=== PATIENT | male | born 1930 | race Caucasian/White ===

== ENCOUNTER 2017-04-21 15:18 | Inpatient (IN) | payer BC ==
[~2017-04-21] VITALS: Ht 172.7 cm; Wt 85.7 kg
[~2017-04-21 15:18] MED LIST: ALPR0.254 PO; ATOR20TA50 PO; CARV25TA55 PO; CLOP75TA28 PO; FLUT250M9 IN; FLUT50SP13; Furosemide PO; GLIP-115 PO; IPRASOL39 IN; LEVO50TA7 PO; LISI10TA6 PO; PROAIR IN
[2017-04-21] MEDS ORDERED: SODIUM CHLORIDE 0.9% 1,000 ML IV ONE (15:46)
[2017-04-21 17:08] LABS: Albumin 2.5 g/dL (3.4-5.0); BUN/Creatinine Ratio 14.2; Calcium 8.4 mg/dL (8.5-10.1); Magnesium 2.2 mg/dL (1.6-2.6); Potassium 4.4 mmol/L (3.5-5.1)
[2017-04-21 17:13] LABS: Basophils # (auto) 0 uL; Basophils % (auto) 0.4 % (0.0-2.0); CONDITION Y; Eosinophils # (auto) 0.1 uL; Hematocrit 42.4 % (41.0-53.0); Hemoglobin 14.4 g/dL (13.5-17.5); Lymphocytes # (auto) 0.8 uL; Lymphocytes % (auto) 18.8 % (10.0-50.0); Mean Corpuscular Hemoglobin 32.1 pg (28.0-32.0); Mean Corpuscular Hgb Conc. 33.9 g/dL (32.0-36.0); Mean Corpuscular Volume 94.7 fL (80.0-100.0); Mean Platelet Volume 10.4 fL (7.4-10.4); Monocytes # (auto) 0.4 uL; Monocytes % (auto) 8.9 % (0.0-12.0); Neutrophils # (auto) 3.1 uL; Neutrophils % (auto) 68.9 % (37.0-80.0); Platelet Count (auto) 71 10^3/uL (140-450); Red Cell Distribution Width 14.5 % (11.6-16.0); Total Protein 7.2 g/dL (6.4-8.2); White Blood Cell 4.5 10^3/uL (4.4-10.8)
[2017-04-21 17:15] LABS: INR 1.09 (0.9-1.15); Partial Thromboplastin Time 29.3 sec (22.64-33.71); Prothrombin Time 11.9 sec (9.37-12.3)
[2017-04-21] MEDS ORDERED: ALPRAZolam 0.25 MG TAB PO PRN ×3 (17:45→19:15)
[2017-04-21] MEDS ORDERED: HYDROcodone-ACET 5/325MG TAB PO PRN (18:00)
[2017-04-21] MEDS ORDERED: ACETAMINOPHEN 325 MG TAB PO PRN (18:00)
[2017-04-21] MEDS ORDERED: ENOXAPARIN SOD 40 MG/0.4 ML SYRINGE SC SCH (18:00)
[2017-04-21] MEDS ORDERED: NITROGLYCERIN 0.4 MG SL TAB SL PRN (18:00)
[2017-04-21] MEDS ORDERED: MORPHINE SULF INJ 2 MG/ML SYRINGE 1ML IV PRN ×2 (18:00)
[2017-04-21] MEDS ORDERED: TEMAZEPAM 15 MG CAP PO PRN (18:00)
[2017-04-21] MEDS ORDERED: DOCUSATE SOD 100 MG CAP PO PRN (18:00)
[2017-04-21] MEDS ORDERED: ONDANSETRON HCL 4 MG/2 ML VIAL IV PRN (18:00)
[2017-04-21] MEDS ORDERED: ASPirin-EC 81 mg tab PO ONE (18:00)
[2017-04-21] MEDS: Boost Glucose Control 8 Ounces PO SCH (18:00)
[2017-04-21] MEDS: ALBUTEROL SULF 2.5 MG/0.5ML(0.5%) NEB SOLN NEB SCH (18:23)
[2017-04-21] MEDS: IPRATROPIUM BROM 0.5 MG/2.5ML INH SOL NEB SCH (18:24)
[2017-04-21] MEDS: BUDESONIDE (INHALATION) 0.5 MG/2 ML NEB NEB SCH (18:25)
[2017-04-21] MEDS: glipiZIDE 5 MG TAB PO SCH (18:33)
[2017-04-21] MEDS ORDERED: ALPR0.254 PO (18:42)
[2017-04-21] MEDS ORDERED: FLUT250M2 INH (18:42)
[2017-04-21] MEDS ORDERED: ATOR40TA52 PO (18:44)
[2017-04-21] MEDS ORDERED: CLOP75TA41 PO (18:44)
[2017-04-21] MEDS ORDERED: FLUT0.0535 NAS (18:49)
[2017-04-21] MEDS ORDERED: FURO40TA4 PO (18:49)
[2017-04-21] MEDS ORDERED: GABA-497 PO (18:49)
[2017-04-21] MEDS ORDERED: DEXTROSE (50%) 50ML SYRG IV PRN (19:00)
[2017-04-21] MEDS ORDERED: PRO20T PO (19:12)
[2017-04-21] MEDS ORDERED: POTA10TA34 PO (19:12)
[2017-04-21] MEDS ORDERED: LEVO25TA6 PO (19:12)
[2017-04-21] MEDS ORDERED: LISI10TA6 PO (19:12)
[2017-04-21] MEDS ORDERED: FLUTICASONE PROP NASAL SPR 0.05 % (50MCG) 16GM PRN (19:15)
[2017-04-21] MEDS ORDERED: CLOPIDOGREL BISULFATE 75 MG TAB PO SCH (22:00)
[2017-04-21] MEDS: CARVEDILOL 12.5 MG TAB PO SCH (22:00)
[2017-04-21] MEDS: ACCU-CHEK COMFORT CURVE STRIP VI SCH (22:00)
[2017-04-21] MEDS: PROPRANOLOL HCL 20 MG TAB PO SCH (22:00)
[2017-04-21] MEDS ORDERED: InsuLIN REG 1unit/0.01ml Soln (100units/ml) SC SCH (22:00)
[2017-04-21] MEDS: GABAPENTIN 300 MG CAP PO SCH (22:00)
[2017-04-21] MEDS ORDERED: ATORVASTATIN 20 MG TAB PO SCH (22:00)
[2017-04-21] MEDS: FLUTICASONE PROP NASAL SPR 0.05 % (50MCG) 16GM EACHNOSTRI SCH (22:00)
[2017-04-21] MEDS: SODIUM CHLOR 0.9% PF (SALINE LOCK) 10ML VIAL IV SCH (22:00)
[2017-04-21 22:42] VITALS: BP 147/62
[2017-04-21 23:00] VITALS: BP 134/58
[2017-04-22] VITALS (8 sets, daily range): BP systolic 90–127; BP diastolic 50–68
[2017-04-22 05:19] LABS: Basophils # (auto) 0 uL; Basophils % (auto) 0.4 % (0.0-2.0); CONDITION Y; DEFINITIVE SEE PRINTOUT; Eosinophils # (auto) 0.1 uL; Eosinophils % (auto) 3.8 % (0.0-7.0); Hematocrit 38.1 % (41.0-53.0); Hemoglobin 12.9 g/dL (13.5-17.5); Lymphocytes # (auto) 0.7 uL; Mean Corpuscular Hemoglobin 31.9 pg (28.0-32.0); Mean Corpuscular Hgb Conc. 33.8 g/dL (32.0-36.0); Mean Corpuscular Volume 94.2 fL (80.0-100.0); Mean Platelet Volume 10.1 fL (7.4-10.4); Monocytes # (auto) 0.3 uL; Monocytes % (auto) 10.9 % (0.0-12.0); Neutrophils # (auto) 1.7 uL; Neutrophils % (auto) 59.9 % (37.0-80.0); Platelet Count (auto) 53 10^3/uL (140-450); Red Cell Distribution Width 14.5 % (11.6-16.0); White Blood Cell 2.8 10^3/uL (4.4-10.8)
[2017-04-22] MEDS: ALBUTEROL SULF 2.5 MG/0.5ML(0.5%) NEB SOLN NEB SCH ×4 (05:37→19:48)
[2017-04-22] MEDS: IPRATROPIUM BROM 0.5 MG/2.5ML INH SOL NEB SCH ×4 (05:37→19:48)
[2017-04-22] MEDS: BUDESONIDE (INHALATION) 0.5 MG/2 ML NEB NEB SCH ×2 (05:38→19:58)
[2017-04-22 05:48] LABS: Albumin 2.2 g/dL (3.4-5.0); Calcium 7.9 mg/dL (8.5-10.1)
[2017-04-22 05:51] LABS: Total Protein 6.1 g/dL (6.4-8.2)
[2017-04-22] MEDS: SODIUM CHLOR 0.9% PF (SALINE LOCK) 10ML VIAL IV SCH ×2 (05:57→13:29)
[2017-04-22] MEDS: ACCU-CHEK COMFORT CURVE STRIP VI SCH ×3 (05:57→18:21)
[2017-04-22] MEDS: InsuLIN REG 1unit/0.01ml Soln (100units/ml) SC SCH ×3 (06:01→18:26)
[2017-04-22] MEDS: GABAPENTIN 300 MG CAP PO SCH ×3 (06:01→18:25)
[2017-04-22] MEDS: glipiZIDE 5 MG TAB PO SCH ×2 (06:01→18:25)
[2017-04-22] MEDS ORDERED: LEVOTHYROXINE SODIUM 25 MCG TAB PO SCH (07:00)
[2017-04-22] MEDS ORDERED: LEVOTHYROXINE SODIUM 50 MCG TAB PO SCH (07:00)
[2017-04-22] MEDS: Boost Glucose Control 8 Ounces PO SCH ×3 (09:49→18:22)
[2017-04-22] MEDS: FLUTICASONE PROP NASAL SPR 0.05 % (50MCG) 16GM EACHNOSTRI SCH (09:58)
[2017-04-22] MEDS: CARVEDILOL 12.5 MG TAB PO SCH (09:58)
[2017-04-22] MEDS ORDERED: ASPirin-EC 81 mg tab PO SCH (10:00)
[2017-04-22] MEDS ORDERED: FUROSEMIDE 40 MG TAB PO SCH (10:00)
[2017-04-22] MEDS ORDERED: ENOXAPARIN SOD 30 MG/0.3 ML SYRINGE SC SCH (10:00)
[2017-04-22] MEDS ORDERED: CLOPIDOGREL BISULFATE 75 MG TAB PO SCH (10:00)
[2017-04-22] MEDS ORDERED: ENOXAPARIN SOD 40 MG/0.4 ML SYRINGE SC SCH (10:00)
[2017-04-22] MEDS ORDERED: LISINOPRIL 10 MG TAB PO SCH ×2 (10:00)
[2017-04-22] MEDS ORDERED: FUROSEMIDE 20 MG TAB PO SCH (10:00)
[2017-04-22] MEDS ORDERED: MULTIPLE VITAMIN TAB PO SCH (10:00)
[2017-04-22] MEDS: PROPRANOLOL HCL 20 MG TAB PO SCH (10:01)
[2017-04-22] MEDS ORDERED: ASP81EC PO (14:11)
== END 2017-04-22 22:12 | disposition home health service (06) | DRG 312 ==
LOC: ER 15:18 → EDBD 15:18 → TELE 15:19 → DOU IN ICU 22:49
PROVIDERS: ADMIT Internal Medicine; ATTEND Internal Medicine
PROC: 4B02XTZ Measurement of Cardiac Defibrillator, External Approach (ICD-10-PCS; principal; 2017-04-22)
DX: R55 Syncope and collapse (principal); E44.0 Moderate protein-calorie malnutrition; D69.6 Thrombocytopenia, unspecified; I42.9 Cardiomyopathy, unspecified; I13.0 Hypertensive heart and chronic kidney disease with heart failure and stage 1 through stage 4 chronic kidney disease, or unspecified chronic kidney disease; E11.22 Type 2 diabetes mellitus with diabetic chronic kidney disease; N18.3 Chronic kidney disease, stage 3 (moderate); I50.9 Heart failure, unspecified; G45.9 Transient cerebral ischemic attack, unspecified; R47.01 Aphasia; E03.9 Hypothyroidism, unspecified; I25.10 Atherosclerotic heart disease of native coronary artery without angina pectoris; K74.60 Unspecified cirrhosis of liver; J44.9 Chronic obstructive pulmonary disease, unspecified; F41.9 Anxiety disorder, unspecified; G47.00 Insomnia, unspecified; K59.00 Constipation, unspecified; E11.40 Type 2 diabetes mellitus with diabetic neuropathy, unspecified; E11.65 Type 2 diabetes mellitus with hyperglycemia; Z79.4 Long term (current) use of insulin; Z95.1 Presence of aortocoronary bypass graft; Z87.891 Personal history of nicotine dependence; Z85.820 Personal history of malignant melanoma of skin; Z90.89 Acquired absence of other organs; Z82.49 Family history of ischemic heart disease and other diseases of the circulatory system; Z79.899 Other long term (current) drug therapy; Z79.82 Long term (current) use of aspirin; Z68.28 Body mass index [BMI] 28.0-28.9, adult; Z95.810 Presence of automatic (implantable) cardiac defibrillator
CPT/HCPCS: 36415; 70450; 71010; 80053; 82962; 83036; 83735; 84443; 84484; 85025; 85610; 85730; 87081; 92610; 93005; 93886; 94640; 95819; 96360; J1815

== ENCOUNTER 2018-08-27 18:33 | Emergency (ER) | payer BC, OTHER ==
[~2018-08-27] VITALS: Ht 177.8 cm; Wt 79.4 kg
[~2018-08-27 18:33] MED LIST changes: +ASP81EC PO; -FLUT50SP13; +FURO40TA4 PO; -Furosemide PO; +GABA300C10 PO; +POTA1TAB61 PO; +PRO20T PO
[2018-08-27 18:36] VITALS: BP 183/56
[2018-08-27] MEDS ORDERED: ACCU-CHEK COMFORT CURVE STRIP VI ONE (18:45)
[2018-08-27 19:19] LABS: Basophils # (auto) 0 uL; Basophils % (auto) 0.6 % (0.0-2.0); Eosinophils # (auto) 0.2 uL; Eosinophils % (auto) 4.4 % (0.0-7.0); Hematocrit 35.9 % (41.0-53.0); Hemoglobin 12.2 g/dL (13.5-17.5); Lymphocytes # (auto) 0.7 uL; Lymphocytes % (auto) 19.8 % (10.0-50.0); Mean Corpuscular Hemoglobin 32.4 pg (28.0-32.0); Mean Corpuscular Volume 95.1 fL (80.0-100.0); Monocytes # (auto) 0.4 uL; Monocytes % (auto) 11.5 % (0.0-12.0); Neutrophils # (auto) 2.4 uL; Neutrophils % (auto) 63.7 % (37.0-80.0); Nucleated Red Blood Cells % 0.1 %; Platelet Count (auto) 65 10^3/uL (140-450); Red Blood Cells 3.77 10^6/uL (4.5-5.90); Red Cell Distribution Width 15.8 % (11.8-14.3); White Blood Cell 3.8 10^3/uL (4.4-10.8)
[2018-08-27 19:49] LABS: Albumin 2.6 g/dL (3.4-5.0); BUN/Creatinine Ratio 14.7; Calcium 8.3 mg/dL (8.5-10.1); Potassium 4.3 mmol/L (3.5-5.1)
[2018-08-27 19:54] LABS: Total Protein 7.5 g/dL (6.4-8.2)
== END 2018-08-27 21:30 | disposition home or self-care (01) ==
LOC: EDUNIT# 18:33 → EDBD 18:33 → ER 18:36
DX: R55 Syncope and collapse (principal); I11.0 Hypertensive heart disease with heart failure; I50.9 Heart failure, unspecified; J44.9 Chronic obstructive pulmonary disease, unspecified; E11.9 Type 2 diabetes mellitus without complications; Z86.73 Personal history of transient ischemic attack (TIA), and cerebral infarction without residual deficits; Z95.1 Presence of aortocoronary bypass graft
CPT/HCPCS: 36415; 70450; 80053; 84484; 85025; 93005